=== PATIENT | female | born 1980 | race Two or more races ===

== ENCOUNTER 2025-01-14 13:46 | Emergency (ER) | payer BC, SELFPAY ==
[2025-01-14 14:05] VITALS: BP 149/91; PULSE 82; RESP 18; TEMP 37.2; O2SAT 97
--- NOTE | 2025-01-14 14:38 | XR_ITS ---
Examination: CT abdomen and pelvis without contrast. Coronal 3-D reconstructions. Sagittal 2-D reconstructions. Date and time of exam:January 14, 2025 1644 hours INDICATIONS: Left flank pain beginning 4 hours ago. CTDI: vol (mGy): 8.64 DLP: (mGycm): 514 Technique: Axial images of the abdomen have been obtained, 3 mm slice thickness Intravenous contrast material has not been administered. Low dose protocols were performed. One or more of the following dose reduction techniques were used; automated exposure control, adjustment of the mA and/or KV according to patient size, use of iterative reconstruction technique. Findings: Hepatomegaly 23 cm, liver irregular in contour. No gallstones. No pancreatic or adrenal mass. No renal or ureteral calculi, no hydronephrosis. Aorta normal size. Normal appendix No bowel obstruction or diverticulitis. Anteverted uterus. No bladder mass or bladder calculi. Mild osteopenia. IMPRESSION: Hepatomegaly, liver mildly irregular in contour No renal or ureteral calculi, no hydronephrosis Normal appendix No bladder mass or bladder calculi
--- NOTE | 2025-01-14 14:39 | PD.EDRME ---
Rapid Medical Screening Exam RME Arrival date/time: 01/14/25 13:46 44-year-old female presents the emergency department with complaints of left flank pain with mild dysuria. I have greeted and performed a focused initial assessment of this patient. Initial appropriate labs ordered at this time. A comprehensive ED assessment and evaluation of the patient and analysis of all test and completion of medical decision making process will be conducted by additional ED provider. Chief Complaint: Back Pain/Injury Time Seen by Provider: 01/14/25 14:09 Vital signs: Vital Signs Temperature 99.0 F 01/14/25 14:05 Pulse Rate 82 01/14/25 14:05 Respiratory Rate 18 01/14/25 14:05 Blood Pressure 149/91 H 01/14/25 14:05 Pulse Oximetry (%) 97 01/14/25 14:05 Oxygen Delivery Method Room Air 01/14/25 14:05
[2025-01-14 15:10] LABS: Collection Type, Urine Clean Catch
[2025-01-14 15:14] LABS: Basophils # (Auto) 0.2 Thou/mm3 (0.0-0.2); Basophils % (Auto) 1 % (0-2.5); Eosinophils # (Auto) 0.1 Thou/mm3 (0.0-0.5); Eosinophils % (Auto) 1 % (0-10); Hematocrit 38.1 % (36.0-46.0); Hemoglobin 13.4 g/dL (12.0-16.0); Immature Granulocytes % (Auto) 0 % (0-0); Immature Granulocytes Auto 0.05 Thou/mm3 (0.00-0.00); Lymphocytes # (Auto) 2.2 Thou/mm3 (1.0-4.8); Lymphocytes % (Auto) 14 % (10-50); Mean Corpuscular HGB Conc 35.2 g/dl (31.0-37.0); Mean Corpuscular Hemoglobin 29.5 pg (25.0-35.0); Mean Corpuscular Volume 84 fL (80-100); Monocytes # (Auto) 0.8 Thou/mm3 (0.0-0.8); Monocytes % (Auto) 5 % (0-12); Neutrophils # (Auto) 12.2 Thou/mm3 (1.8-7.7); Neutrophils % (Auto) 79 % (37-80); Nucleated Red Blood Cell % 0 /100 WBC (0); Platelet Count 327 Thou/mm3 (140-440); RDW Standard Deviation 40.2 fL (36.4-46.3); Red Blood Count 4.54 Miln/mm3 (4.00-5.20); White Blood Count 15.5 Thou/mm3 (3.6-11.0)
[2025-01-14 15:17] LABS: Bilirubin,Urine Negative (Negative); Blood,Urine 1+ (Negative); Clarity,Urine Clear (Clear/Hazy); Color,Urine Lt-Yellow (Lt Yel-Yel); Glucose, Urine Negative (Negative); Ketones,Urine Negative (Negative); Leukocyte Esterase,Urine Positive (Negative); Nitrite,Urine Negative (Negative); Protein,Urine Negative (Neg - Trace); RBC,Urine 7 /hpf (0-3); Specific Gravity,Urine 1.007 (1.001-1.035); Squamous Epithelial Cell,Urine 5 /hpf (0-5); Urobilinogen,Urine Negative mg/dL (0.0-1.0); WBC,Urine 35 /hpf (0-5)
[2025-01-14 15:20] LABS: HCG Qualitative,Urine Negative
[2025-01-14 15:38] LABS: Alanine Aminotransferase 36 U/L (10-49); Albumin, Serum 4.6 gm/dL (3.5-5.0); Albumin/Globulin Ratio 1.4 (1.2-2.2); Alkaline Phosphatase 49 U/L (46-116); Anion Gap 9 (7-16); Aspartate Amino Transferase 31 U/L (0-34); BUN/Creatinine Ratio 16 Ratio (12-20); Bilirubin,Total 0.5 mg/dL (0.3-1.2); Blood Urea Nitrogen 13 mg/dL (9-23); Calcium 10.3 mg/dL (8.3-10.6); Calcium (Corrected) 10.3 mg/dL (8.5-10.1); Carbon Dioxide 25.8 mMol/L (20.0-31.0); Chloride 101 mMol/L (98-107); Creatinine (Component) 0.8 mg/dL (0.6-1.3); Globulin 3.2 gm/dL (2.3-3.5); Glucose 144 mg/dL (74-106); Lipase 36 U/L (12-53); Osmolality,Calculated 275 (275-295); Potassium 4.3 mMol/L (3.4-5.1); Sodium 136 mMol/L (136-145); Total Protein 7.8 gm/dL (5.7-8.2); eGFR > 60 See Note
--- NOTE | 2025-01-14 18:44 | EDNOTE_ITS ---
ED Back Injury Pain RME/HPI General Chief Complaint: Back Pain/Injury Stated Complaint: LEFT FLANK/PELVIC PAIN Time Seen by Provider: 01/14/25 14:09 Arrival date/time: 01/14/25 13:46 Limitations: no limitations RME / HPI RME / HPI Narrative: 01/14/25 13:46 44-year-old female presents the emergency department with complaints of left flank pain with mild dysuria. I have greeted and performed a focused initial assessment of this patient. Initial appropriate labs ordered at this time. A comprehensive ED assessment and evaluation of the patient and analysis of all test and completion of medical decision making process will be conducted by additional ED provider. DR. BARKSDALE MAIN ED EVALUATION: 44-year-old female with history of type 2 diabetes, presents to the Emergency Department with complaint of left flank pain x 1 day. The patient is also having some dysuria, left flank pain is sharp in nature without radiation. Patient states she had to come into the emergency department from work because of the dysuria. Otherwise no fevers nausea or vomiting, no chest pain or shortness of breath. Related Data Allergies Allergy/AdvReac Type Severity Reaction Status Date / Time No Known Allergies Allergy Verified 01/14/25 13:49 Review of Systems Review of Systems Systems Reviewed: All systems reviewed, normal except as documented Narrative Review of Systems: GEN: No fever, no chills, no weight loss EYES: No discharge, no visual changes, no pain HEENT: No ear pain, no congestion, no sore throat PULM: No shortness of breath, no cough, no congestion CV: No chest pain, no dyspnea on exertion, no palpitations GI: No nausea, no vomiting, no diarrhea, + left flank pain, no constipation : No frequency, no urgency; + dysuria MUSC/SKEL: No joint pain, no back pain SKIN: No rash PSYCH: No hallucinations, no depression HEME/LYMPH: No easy bleeding or bruising tendencies NEURO: No weakness, no headache Past Medical History Past Medical History ENDOCRINE: Positive Diabetes Mellitus Type 2 Social History SMOKING STATUS: Never smoker SUBSTANCE USE: does not use ALCOHOL: Never ED Exam General Limitations: Present no limitations General appearance: Present alert and other (Patient is mildly uncomfortable. The patient appears clinically well.) Head Head exam: Present atraumatic, normocephalic and normal inspection Eye Eye exam: Present normal appearance, PERRL and EOMI ENT ENT exam: Present normal exam, normal oropharynx and mucous membranes moist Neck Neck exam: Present normal inspection, full ROM and trachea midline Chest Chest inspection: Present normal inspection and symmetric chest wall rise Respiratory Respiratory exam: Present normal lung sounds bilaterally Cardiovascular Cardiovascular exam: Present regular rate, normal rhythm and normal heart sounds Abdominal Exam Abdominal exam: Present soft, normal bowel sounds and other (no abdominal pain, no tenderness palpation); Absent tenderness, rebound or Alonso's sign Extremities Exam Extremities exam: Present normal inspection and full ROM Back Exam Back exam: Present normal inspection, full ROM and CVA tenderness (L) (mild CVA tenderness with no abdominal pain) Neurological Exam Neurological exam: Present alert, oriented X3 and CN II-XII intact Psychiatric Psychiatric exam: Present normal affect and normal mood Skin Skin exam: Present warm, dry, intact and normal color Course Quality Measures none Orders Category Date Time Status IV [Insert IV] NOW Care 01/14/25 18:[address] abdomen pelvis wo con Stat Exams 01/14/25 14:38 Completed CBC Stat Lab 01/14/25 14:48 Completed Comprehensive Metabolic Panel Stat Lab 01/14/25 14:48 Completed HCG Qualitative,Urine Stat Lab 01/14/25 14:49 Completed Lipase Stat Lab 01/14/25 14:48 Completed Urinalysis Stat Lab 01/14/25 14:49 Completed Acetaminophen Tab [Tylenol Tab] Med 01/14/25 18:43 Once 650 mg PO X1 ONE Ketorolac Inj [Toradol Inj] Med 01/14/25 18:43 Once 30 mg IVP X1 ONE cefTRIAXone/D5w 1gm IV premix [Rocephin/D5w 1gm IV Med 01/14/25 18:44 Ordered premix] 50 ml IV X1 Vital Signs Vital signs: Vital Signs Temperature 99.0 F 01/14/25 14:05 Pulse Rate 82 01/14/25 14:05 Respiratory Rate 18 01/14/25 14:05 Blood Pressure 149/91 H 01/14/25 14:05 Pulse Oximetry (%) 97 01/14/25 14:05 Oxygen Delivery Method Room Air 01/14/25 14:05 Back Pain / Injury MDM Narrative MDM Narrative:: The patient was placed in an area where an IV is placed. White count shows that she has a white count of 15,000 and otherwise liver function test are normal, glucose is slightly elevated at 144. And urinalysis is consistent with UTI with 35 white cells, positive leukocytes, not and since the patient is symptomatic we will treat as UTI, possible early pyelonephritis. Plan to treat the patient with Toradol and ceftriaxone. She will be given a prescription for outpatient Keflex, and will need to follow-up with the primary care for urine culture results. Return precautions are given and understood. Yola Tatum am scribing for and in the presence of Dr. Barksdale. Patient data External records reviewed:: None (no previous visits) Clinical information provided by:: patient Social determinants that could affect healthcare access:: none Patient has the following chronic illnesses:: type 2 diabetes How is presenting disease/condition affected by chronic disease/condition?: uneffected by Evaluation data The following diagnostics were reviewed and interpreted by me:: lab results and radiology exam(s) Lab and/or radiology exams considered but not ordered:: none Interpretation Summary: See above under MDM narrative. RADIOLOGY Procedure(s): CT abdomen pelvis wo [facility] Accession Number(s): [id number] cc: Kye Talavera MD; Joyce Frey; Fatoumata LouisKAISER FOUNDATION HOSPITALPricila Nicholas~ Examination: CT abdomen and pelvis without contrast. Coronal 3-D reconstructions. Sagittal 2-D reconstructions. Date and time of exam:January 14, 2025 1644 hours INDICATIONS: Left flank pain beginning 4 hours ago. CTDI: vol (mGy): 8.64 DLP: (mGycm): 514 Technique: Axial images of the abdomen have been obtained, 3 mm slice thickness Intravenous contrast material has not been administered. Low dose protocols were performed. One or more of the following dose reduction techniques were used; automated exposure control, adjustment of the mA and/or KV according to patient size, use of iterative reconstruction technique. Findings: Hepatomegaly 23 cm, liver irregular in contour. No gallstones. No pancreatic or adrenal mass. No renal or ureteral calculi, no hydronephrosis. Aorta normal size. Normal appendix No bowel obstruction or diverticulitis. Anteverted uterus. No bladder mass or bladder calculi. Mild osteopenia. IMPRESSION: Hepatomegaly, liver mildly irregular in contour No renal or ureteral calculi, no hydronephrosis Normal appendix No bladder mass or bladder calculi Dictated By: Kye Talavera MD Medications / Prescriptions Medications or Prescriptions considered but not ordered:: none Medication administrations:: Medication Administration History Ceftriaxone Sodium/Dextrose (Rocephin/D5w 1gm Iv Premix) 1 gm in 50 mls @ 100 mls/hr IV X1 ONE Stop: 01/14/25 19:13 Discontinued Medications Acetaminophen (Acetaminophen 325 Mg Tablet) 650 mg PO X1 ONE Stop: 01/14/25 18:44 Ketorolac Tromethamine (Ketorolac Inj 30 Mg/Ml Vial) 30 mg IVP X1 ONE Stop: 01/14/25 18:44 see above Consultations Consultation(s) initiated? (list below): No Diagnosis Differential diagnosis back pain/injury: renal colic, pyelonephritis and other (kidney stones, UTI) Most likely diagnosis given after review of the tests above:: Acute left flank pain Dysuria Admission Indicated Admission indicated?: not indicated Admission Request Was there a request for admission?: No Disposition Plan Disposition Plan: Discharge Discharge Attestation Discharge Attestation: The patient and all family members were given an opportunity to ask questions and understood the discharge instructions. Discharge instructions specifically effects, indications for sooner follow up or return to the emergency department, and the expected course of current diagnosis. Patient condition: Stable Discharge Plan Plan Patient Disposition: HOME (Self Care) Patient condition on transfer: Stable Prescriptions/Referrals Referrals: Joyce Frey FNP [Primary Care Provider] - 01/17/25 Problem List Clinical Impression: Acute left flank pain, Dysuria Patient/Caregiver Discharge Instructions Education Materials: Dysuria Additional Instructions: Please pick remover your prescription tomorrow and take it 3 times a day for the next 7 days. You can take [id number] Tylenol 650 mg or Motrin 600 mg 3 times a day for the next 2 to 3 days for any pain. You will need to follow-up with your primary care physician in the next 72 hours so that you can get the results of the urine culture. Return to emergency department for worsening symptoms, you have a fever despite Tylenol, you cannot eat or drink fluids, I will worsening pain, or any other concerns Print Language: English Stand Alone Forms: Delores Award Info., Work/School Release, Patient Portal Info Letter
[2025-01-14] MEDS: ACETAMINOPHEN 325 MG TABLET 650 MG PO (19:25)
[2025-01-14] MEDS: KETOROLAC INJ 30 MG/ML VIAL IVP (19:28)
[2025-01-14] MEDS: cefTRIAXone/D5w 1gm IV premix 1 GM/50 ML BAG IV (19:30)
== END 2025-01-14 20:24 | disposition home or self-care (01) ==
PROVIDERS: Nurse Practitioner Primary Care; Emergency Provider Emergency Medicine; PCP Nurse Practitioner Family
DX: R30.0 Dysuria (principal); R10.2 Pelvic and perineal pain; R16.0 Hepatomegaly, not elsewhere classified
CPT/HCPCS: 36415; 74176; 80053; 81001; 81025; 83690; 85025; 99284; J0696; J1885; A9270

== ENCOUNTER → 2025-09-26 | Outpatient (CLI) | payer BC, SELFPAY ==
--- NOTE | 2025-09-26 08:30 | XR_ITS ---
Examination: Screening digital mammography, bilateral Computer aided detection 3-D breast Tomosynthesis, bilateral Date and time of exam: 09/26/2025, 8:07 a.m. Comparisons: 08/01/2023 Indications: Screening Technique: Nonmagnified MLO, CC views of the breasts to been obtained, reconstructed from 3-D Tomosynthesis images. R2 computer aided detection program utilized for evaluation of suspicious masses and/or abnormal calcifications. 3-D Tomosynthesis images obtained. Technologist: Findings: There are scattered areas of fibroglandular density. No evidence of abnormal masses or suspicious calcifications. Impression: BI-RADS category 1: Negative findings (within normal) Recommend 1 year follow-up mammogram
== END | disposition home or self-care (01) ==
LOC: CDIM 08:01
PROVIDERS: Referring Provider Nurse Practitioner Family; Visit Provider Nurse Practitioner Family
DX: Z12.31 Encounter for screening mammogram for malignant neoplasm of breast (principal); R92.313 Mammographic fatty tissue density, bilateral breasts
CPT/HCPCS: 77063; 77067